=== PATIENT | female | born 1970 | race Two or more races ===

== ENCOUNTER 2017-11-20 19:51 | Emergency (ER) | payer MEDICAID ==
[~2017-11-20] VITALS: Ht 157.5 cm; Wt 77.1 kg
[2017-11-20 20:56] LABS: Urine Bacteria NONE SEEN /hpf (None Seen); Urine Blood 2+ /uL (Negative); Urine Mucus FEW (None Seen); Urine WBC 2 /hpf (0 - 5)
[2017-11-20 21:34] LABS: Basophils # (auto) 0.1 uL; Eosinophils # (auto) 0.1 uL; Monocytes # (auto) 0.6 uL; Nucleated Red Blood Cells % 0.1 %
[2017-11-20 21:36] LABS: Basophils % (auto) 0.9 % (0.0-2.0); Eosinophils % (auto) 0.9 % (0.0-7.0); Hematocrit 22.3 % (36.0-46.0); Lymphocytes # (auto) 1.9 uL; Lymphocytes % (auto) 18.6 % (10.0-50.0); Mean Corpuscular Hemoglobin 18.4 pg (28.0-32.0); Mean Corpuscular Volume 63.5 fL (80.0-100.0); Monocytes % (auto) 5.9 % (0.0-12.0); Neutrophils # (auto) 7.7 uL; Neutrophils % (auto) 73.7 % (37.0-80.0); Platelet Count (auto) 297 10^3/uL (140-450); Red Blood Cells 3.51 10^6/uL (4.0-5.20); White Blood Cell 10.4 10^3/uL (4.4-10.8)
[2017-11-20 21:42] LABS: Hemoglobin 6.5 g/dL (12.2-16.2)
[2017-11-20 21:44] LABS: INR 0.92 (0.9-1.15); Partial Thromboplastin Time 21.4 sec (22.64-33.71)
[2017-11-20 21:53] LABS: Alanine Aminotransferase 20 U/L (13-56); Albumin 3.5 g/dL (3.4-5.0); Alkaline Phosphatase 108 U/L (45-117); Amylase 30 U/L (25-115); Anion Gap 12 (5-15); Aspartate Aminotransferase 17 U/L (15-37); BUN/Creatinine Ratio 16.2; Bilirubin, Total 0.3 mg/dL (0.2-1.0); Blood Urea Nitrogen 11 mg/dL (7-18); Calcium 8.5 mg/dL (8.5-10.1); Carbon Dioxide 24 mmol/L (21-32); Chloride 105 mmol/L (98-107); GFR African American 120 mL/min; GFR Non-African American 99 mL/min; Glucose 127 mg/dL (74-106); Lipase 152 U/L (73-393); Magnesium 2.9 mg/dL (1.6-2.6); Potassium 4.4 mmol/L (3.5-5.1); Sodium 141 mmol/L (136-145); Total Protein 7.4 g/dL (6.4-8.2)
[2017-11-21] VITALS (7 sets, daily range): BP systolic 91–120; BP diastolic 54–72
== END 2017-11-21 04:56 | disposition home or self-care (01) ==
LOC: ER 19:51
DX: D64.9 Anemia, unspecified (principal); E78.5 Hyperlipidemia, unspecified; N93.8 Other specified abnormal uterine and vaginal bleeding
CPT/HCPCS: 36415; 36430; 71046; 74176; 80053; 81001; 82150; 83690; 83735; 84484; 84702; 85025; 85610; 85730; 86850; 86900; 86901; 86920; 93005; 99285; P9016